=== PATIENT | female | born 1965 | race American Indian/Alaskan Native ===

== ENCOUNTER 2018-10-11 06:40 | Emergency (ER) | payer OTHER ==
[2018-10-11 06:41] VITALS: BMI 30.1
[2018-10-11 06:53] VITALS: RESP 20
--- NOTE | 2018-10-11 08:01 | C.PDOC ---
History Of Present Illness 53 y/o female presents to the ER for evaluation of polysubstance abuse. Patient was found rolling around on the floor at [facility] [employer]. Patient states that she used cocaine, heroin, and marijuana. Patient denies having LOC, headache, dizziness, suicidal ideation, and homicidal ideation. Chief Complaint (Nursing): Substance Abuse History Per: Patient History/Exam Limitations: no limitations Past Medical History Reviewed: Historical Data, Nursing Documentation, Vital Signs Vital Signs: Last Vital Signs Temp 98.1 F 10/11/18 06:49 Pulse 72 10/11/18 06:49 Resp 20 10/11/18 06:49 BP 141/81 10/11/18 06:49 Pulse Ox 94 L 10/11/18 06:49 - Medical History PMH: Denies: Diabetes, Hepatitis, HIV, HTN, Seizures, Sexually Transmitted Disease Surgical History: No Surg Hx - [facility] DRUG DETOXIFICATION (02/19/15) Family History: States: No Known Family Hx - Social History Hx Tobacco Use: Yes Hx Alcohol Use: No Hx Substance Use: Yes - Immunization History Hx Tetanus Toxoid Vaccination: Yes Hx Influenza Vaccination: No Hx Pneumococcal Vaccination: No Review Of Systems Except As Marked, All Systems Reviewed And Found Negative. Constitutional: Negative for: Fever, Chills Physical Exam - Physical Exam Appears: Non-toxic, No Acute Distress, Other (awake,alert,oriented x3) Skin: Normal Color, Warm, Dry Head: Atraumatic, Normacephalic Eye(s): bilateral: Normal Inspection Teeth: Avulsed (Tooth # 26) Gingiva: Other (mild oozing from region around tooth # 26) Neck: Supple Chest: Symmetrical Cardiovascular: Rhythm Regular Respiratory: Normal Breath Sounds, No Rales, No Rhonchi, No Wheezing Gastrointestinal/Abdominal: Soft, No Tenderness, No Guarding, No Rebound Neurological/Psych: Oriented x3, Normal Speech, Normal Motor, Normal Sensation Gait: Steady ED Course And Treatment O2 Sat by Pulse Oximetry: 94 (RA) Pulse Ox Interpretation: Normal Disposition Counseled Patient/Family Regarding: Diagnosis, Need For Followup - Disposition Referrals: [facility] [Outside] [facility] [Outside] Disposition: HOME/ ROUTINE Disposition Time: 08:17 Condition: STABLE Instructions: Fractured Tooth (DC), Polysubstance Abuse (DC) Forms: [facility] (Faroese), General Discharge Instructions - Clinical Impression Clinical Impression: Polysubstance abuse, Tooth avulsion - Scribe Statement The provider has reviewed the documentation as recorded by the [employer] Jimmie Rouse Provider Attestation: All medical record entries made by the Scribe were at my direction and personally dictated by me. I have reviewed the chart and agree that the record accurately reflects my personal performance of the history, physical exam, medical decision making, and the department course for this patient. I have also personally directed, reviewed, and agree with the discharge instructions and disposition.
[2018-10-11 08:30] VITALS: BP 112/72; PULSE 109; TEMP 97.9
[2018-10-11 08:49] VITALS: O2SAT 94
== END 2018-10-11 08:48 | disposition home or self-care (01) ==
LOC: C.ER 06:40
DX: F19.10 Other psychoactive substance abuse, uncomplicated (principal); S03.2XXA Dislocation of tooth, initial encounter; X58.XXXA Exposure to other specified factors, initial encounter